=== PATIENT | female | born 1985 | race African-American/Black ===

== ENCOUNTER 2016-08-13 13:46 | Emergency (ER) | payer MEDICAID ==
[~2016-08-13] VITALS: Ht 165.1 cm; Wt 62.6 kg
[2016-08-13 14:46] VITALS: BP 112/68
== END 2016-08-13 15:01 | disposition home or self-care (01) ==
LOC: ER 13:46
DX: J01.10 Acute frontal sinusitis, unspecified (principal); D64.9 Anemia, unspecified; G43.909 Migraine, unspecified, not intractable, without status migrainosus; Z88.6 Allergy status to analgesic agent
CPT/HCPCS: 82962

== ENCOUNTER 2017-08-26 18:21 | Emergency (ER) | payer MEDICAID ==
[~2017-08-26] VITALS: Ht 165.1 cm; Wt 59.0 kg
[2017-08-26 18:59] LABS: Basophils # (auto) 0.1 uL; Basophils % (auto) 0.9 % (0.0-2.0); Eosinophils # (auto) 0.1 uL; Eosinophils % (auto) 1.4 % (0.0-7.0); Hematocrit 28.7 % (36.0-46.0); Hemoglobin 8.9 g/dL (12.2-16.2); Lymphocytes # (auto) 2.1 uL; Lymphocytes % (auto) 28.7 % (10.0-50.0); Mean Corpuscular Hemoglobin 22.3 pg (28.0-32.0); Mean Corpuscular Hgb Conc. 31.1 g/dL (32.0-36.0); Mean Corpuscular Volume 71.8 fL (80.0-100.0); Monocytes # (auto) 0.6 uL; Monocytes % (auto) 8.6 % (0.0-12.0); Neutrophils # (auto) 4.5 uL; Neutrophils % (auto) 60.4 % (37.0-80.0); Platelet Count (auto) 364 10^3/uL (140-450); Red Blood Cells 3.99 10^6/uL (4.0-5.20); Red Cell Distribution Width 19.9 % (11.8-14.3); White Blood Cell 7.4 10^3/uL (4.4-10.8)
[2017-08-26 19:18] LABS: Albumin 4.3 g/dL (3.4-5.0); BUN/Creatinine Ratio 13.2; Calcium 8.6 mg/dL (8.5-10.1); Potassium 3.4 mmol/L (3.5-5.1)
[2017-08-26 19:20] LABS: Bilirubin, Total 0.3 mg/dL (0.2-1.0); Total Protein 8.3 g/dL (6.4-8.2)
[2017-08-26 19:53] LABS: Urine Bacteria FEW /hpf (None Seen); Urine Blood Negative /uL (Negative); Urine Mucus FEW (None Seen); Urine Specific Gravity 1.004 (1.001-1.035); Urine WBC <1 /hpf (0 - 5)
[2017-08-26 22:55] VITALS: BP 117/73
== END 2017-08-27 00:41 | disposition home or self-care (01) ==
LOC: ER 18:21
DX: J01.10 Acute frontal sinusitis, unspecified (principal); F17.200 Nicotine dependence, unspecified, uncomplicated; R42 Dizziness and giddiness
CPT/HCPCS: 36415; 70450; 80053; 81001; 81025; 85025

== ENCOUNTER 2018-06-03 05:17 | Observation (INO) | payer MEDICAID ==
[~2018-06-03] VITALS: Ht 165.1 cm; Wt 65.8 kg
[2018-06-03] MEDS: hydrOXYzine HCL 25 MG/ML VL IM ONE (06:28)
[2018-06-03] MEDS ORDERED: hydrOXYzine HCL 25 MG/ML VL IM ONE (06:32)
[2018-06-03] MEDS ORDERED: PREN-96 PO (06:38)
[2018-06-03] MEDS ORDERED: FERR-7 PO (06:39)
[2018-06-03] MEDS ORDERED: TERBUTALINE SULFATE 1 MG/ML 1ML VIAL SC ONE (06:42)
[2018-06-03] MEDS: TERBUTALINE SULFATE 1 MG/ML 1ML VIAL SC SCH (06:45)
== END 2018-06-03 07:22 | disposition home or self-care (01) | DRG 565 ==
LOC: LDRP 05:17
PROVIDERS: ADMIT Obstetrics & Gynecology; ATTEND Obstetrics & Gynecology
DX: O47.9 False labor, unspecified (principal); Z3A.37 37 weeks gestation of pregnancy; Z98.891 History of uterine scar from previous surgery; Z87.891 Personal history of nicotine dependence
CPT/HCPCS: 59025; 81002; 96372; G0378; J3105; J3410

== ENCOUNTER 2018-10-11 23:26 | Emergency (ER) | payer MEDICAID ==
[~2018-10-11] VITALS: Ht 165.1 cm; Wt 70.8 kg
[~2018-10-11 23:26] MED LIST: FERR-7 PO; PREN-96 PO
[2018-10-12 00:55] LABS: Urine Bacteria NONE SEEN /hpf (None Seen); Urine Blood Negative /uL (Negative); Urine Specific Gravity 1.009 (1.001-1.035); Urine WBC 1 /hpf (0 - 5)
[2018-10-12 01:50] LABS: Basophils # (auto) 0.1 uL; Basophils % (auto) 0.8 % (0.0-2.0); Eosinophils # (auto) 0.2 uL; Eosinophils % (auto) 2.5 % (0.0-7.0); Hemoglobin 12.5 g/dL (12.2-16.2); Lymphocytes # (auto) 2.3 uL; Lymphocytes % (auto) 33.8 % (10.0-50.0); Mean Corpuscular Hemoglobin 27.8 pg (28.0-32.0); Mean Corpuscular Hgb Conc. 32.9 g/dL (32.0-36.0); Mean Corpuscular Volume 84.6 fL (80.0-100.0); Monocytes # (auto) 0.6 uL; Monocytes % (auto) 9.4 % (0.0-12.0); Neutrophils # (auto) 3.7 uL; Neutrophils % (auto) 53.5 % (37.0-80.0); Nucleated Red Blood Cells % 0.2 %; Platelet Count (auto) 278 10^3/uL (140-450); Red Blood Cells 4.49 10^6/uL (4.0-5.20); Red Cell Distribution Width 15.6 % (11.8-14.3); White Blood Cell 6.9 10^3/uL (4.4-10.8)
[2018-10-12 02:07] LABS: INR 1.91 (0.9-1.15); Partial Thromboplastin Time 43.4 sec (23.78-33.04); Prothrombin Time 19.7 sec (9.27-12.13)
[2018-10-12 02:08] LABS: Alanine Aminotransferase 23 U/L (13-56); Anion Gap 8 (5-15); Aspartate Aminotransferase 19 U/L (15-37); BUN/Creatinine Ratio 17.9; Blood Urea Nitrogen 12 mg/dL (7-18); Calcium 8.8 mg/dL (8.5-10.1); Carbon Dioxide 27 mmol/L (21-32); Chloride 103 mmol/L (98-107); GFR African American 132 mL/min; GFR Non-African American 109 mL/min; Glucose 89 mg/dL (74-106); Magnesium 2.1 mg/dL (1.6-2.6); Potassium 3.8 mmol/L (3.5-5.1); Sodium 138 mmol/L (136-145)
[2018-10-12 02:13] LABS: Alkaline Phosphatase 110 U/L (45-117); Bilirubin, Total 0.3 mg/dL (0.2-1.0); Total Protein 7.9 g/dL (6.4-8.2)
[2018-10-12 05:27] VITALS: BP 120/73
== END 2018-10-12 06:11 | disposition home or self-care (01) ==
LOC: ER 23:31
DX: R07.89 Other chest pain (principal)
CPT/HCPCS: 36415; 71046; 80053; 81001; 81025; 83735; 83880; 84484; 85025; 85610; 85730

== ENCOUNTER 2018-12-27 14:01 | Emergency (ER) | payer MEDICAID ==
[~2018-12-27] VITALS: Ht 165.1 cm; Wt 74.4 kg
[2018-12-27] MEDS ORDERED: methylPREDNISolone SOD SUCC 125 MG/2 ML VL IM ONE (16:15)
[2018-12-27 16:17] VITALS: BP 115/71
== END 2018-12-27 16:31 | disposition home or self-care (01) ==
LOC: ER 14:04
DX: H57.12 Ocular pain, left eye (principal); Z88.6 Allergy status to analgesic agent

== ENCOUNTER 2021-11-30 19:04 | Emergency (ER) | payer MEDICAID ==
[~2021-11-30] VITALS: Ht 165.1 cm; Wt 56.7 kg
[2021-11-30 19:59] VITALS: BP 127/67
[2021-11-30 20:02] LABS: Urine Bacteria NONE SEEN /hpf (None Seen); Urine Blood Negative /uL (Negative); Urine Mucus FEW (None Seen); Urine Specific Gravity 1.022 (1.001-1.035); Urine WBC <1 /hpf (0 - 5)
[2021-11-30] MEDS ORDERED: DOXY-286 PO (20:16)
== END 2021-11-30 20:25 | disposition home or self-care (01) ==
LOC: ER 19:04
DX: R30.0 Dysuria (principal); F12.10 Cannabis abuse, uncomplicated; Z88.6 Allergy status to analgesic agent
CPT/HCPCS: 81001

== ENCOUNTER 2023-12-30 10:09 | Emergency (ER) | payer MEDICAID ==
[~2023-12-30] VITALS: Ht 165.1 cm; Wt 66.2 kg
[~2023-12-30 10:09] MED LIST changes: +DOXY-286 PO
[2023-12-30 13:01] LABS: Urine Bacteria None Seen /hpf (None Seen)
[2023-12-30 13:14] LABS: Urine Blood Negative /uL (Negative); Urine Clarity Clear (Clear); Urine Color Light-Yellow (Yellow); Urine Mucus FEW (None Seen); Urine Protein, UAD TRACE (Negative); Urine Specific Gravity 1.025 (1.001-1.035); Urine Urobilinogen Normal (Negative); Urine WBC 1 /hpf (0 - 5)
[2023-12-30 14:26] VITALS: BP 115/73; PULSE 98; RESP 18; TEMP 99.2; O2SAT 100
== END 2023-12-30 14:28 | disposition home or self-care (01) ==
LOC: ER 10:09
DX: O20.0 Threatened abortion (principal); R10.2 Pelvic and perineal pain; F15.90 Other stimulant use, unspecified, uncomplicated; Z3A.01 Less than 8 weeks gestation of pregnancy; Z86.2 Personal history of diseases of the blood and blood-forming organs and certain disorders involving the immune mechanism; Z98.890 Other specified postprocedural states; Z88.8 Allergy status to other drugs, medicaments and biological substances; Z79.899 Other long term (current) drug therapy
CPT/HCPCS: 36415; 76801; 76817; 81001; 84702